=== PATIENT | male | born 1995 | race Caucasian/White ===

== ENCOUNTER 2018-05-25 02:06 | Emergency (ER) | payer BC ==
[2018-05-25] MEDS ORDERED: NS 1,000 ML IV ONE (02:16)
--- NOTE | 2018-05-25 02:43 | EDPHY ---
H & P Stated Complaint: alcohol intoxication, chin laceration Source: EMS Exam Limitations: Intoxication - Personal History Tetanus Vaccine Date: 1015 - Medical/Surgical History Hx Asthma: No Hx Chronic Respiratory Disease: No Hx Diabetes: No Hx Cardiac Disease: No Hx Renal Disease: No Hx Cirrhosis: No Hx Alcoholism: No Hx HIV/AIDS: No Hx Splenectomy or Spleen Trauma: No Other PMH: denies - Social History Smoking Status: Never smoked Time Seen by Provider: 05/25/18 02:14 HPI/ROS: 2:40 a.m.- I received report from the paramedics upon the patient's arrival. He has a 22- year-old male who admits to alcohol use tonight and has a chin laceration. His girlfriend called 911 and stated that he was unresponsive and she was very worried about him. However, when paramedics arrived he was alert and oriented. I was informed by the nurse at the patient bolted out of the emergency department running out through the ambulance [facility]. We called security, however they were all her unable to find him. We have called the police. At approximately 3:00 a.m., the patient was brought back to the emergency department with the police after being found close to the hospital. HPI The patient presents with chin laceration, altered mental status. Originally, the patient's girlfriend called 911 because he had seemed to stop breathing. When the paramedics arrived, he was awake and alert. He did admit to drinking several alcoholic drinks during the course of the day and there was some cocaine found near him. His girlfriend says that he cut his chin while walking into the house, however she is not sure on what. The patient does not have a headache, vomiting, changes to his vision. He says that he wanted to leave the ER earlier because he was feeling nervous and ran. He now apologizes for this and states that he is appreciative for his care. REVIEW OF SYSTEMS 10 systems were reviewed and negative with the exception of the elements mentioned in the history of present illness. PMHx: Healthy Soc Hx: College student, alcohol and cocaine use PHYSICAL General Appearance: Alert, appears intoxicated Head: There is superficial abrasions to his forehead, he has a 2 cm chin laceration to his inferior chin which is gaping Eyes: Pupils equal and round no pallor or injection ENT, Mouth: Mucous membranes moist Respiratory: There are no retractions, lungs are clear to auscultation Cardiovascular: Tachycardic rate and regular rhythm Gastrointestinal: Abdomen is soft and non-tender, no masses, bowel sounds normal Neurological: A&O, moves all extremities Skin: Warm and dry, no rashes Musculoskeletal: Neck is supple non tender Extremities: symmetrical, full range of motion Psychiatric: Patient is oriented X 3, there is no agitation (Felicity Vazquez) Constitutional: Initial Vital Signs Temperature (C) 37.0 C 05/25/18 02:11 Heart Rate 116 H 05/25/18 02:11 Respiratory Rate 20 05/25/18 02:11 Blood Pressure 148/80 H 05/25/18 02:11 O2 Sat (%) 98 05/25/18 02:11 O2 Delivery Mode Room Air Allergies/Adverse Reactions: No Known Allergies Allergy (Unverified 05/25/18 02:11) Home Medications: Medication Instructions Recorded NK [No Known Home Meds] 05/25/18 Medical Decision Making Procedures: LACERATION REPAIR Procedure: Laceration repair. Verbal consent was obtained from the patient. The linear 2 cm laceration on the chin was anesthetized using lidocaine with epinephrine. The wound was scrubbed, draped and explored to its base with a gloved finger. There were no deep structures involved. No tendon injury was identified. The wound required extensive debridement . The wound was repaired with 3 deep dermal simple interrupted sutures of 4-0 PDS followed by a combination of horizontal mattress and simple interrupted epidermal sutures of 5-0 Prolene. The wound repair was complex. The procedure was performed by myself. (Felicity Vazquez) ED Course/Re-evaluation: Patient's care was signed out to me at 7:00 a.m.. I saw the patient at 7:30 a.m.. He is awake and conversational. He tells me no headache. He tells me no neck pain. No dental pain or trauma. Laceration that has been sutured inspected by me and looks fine. 8:30 a.m. patient is ambulatory in the emergency department. He is alert conversational. Again no headache. No evidence of concussion or closed head injury He will be transported to the [facility] [address] by [employer] (Gabino Salcedo) Differential Diagnosis: 22-year-old male college student with no significant past medical history presents with altered mental status in the setting of alcohol intoxication and likely cocaine use, found by his girlfriend to not be breathing she reports. When paramedics arrived, patient was breathing normally with normal vital signs though did seem heavily intoxicated with a laceration to his chin. He was in the ER for or less than an hour when he bolted out to the ambulance [facility]. Police were called to retrieve him. Here, he has a normal neurologic exam, however seems intoxicated and has a laceration to his chin. He had a blood alcohol level in the 300s with urine toxicology positive for marijuana. I repaired his chin laceration. I plan to observe him for several hours until he is sober. I do not think he needs CT scan of his head at this time the will monitor him closely. (Felicity Vazquez) - Data Points Laboratory Results: 05/25/18 05/25/18 02:20 02:20 Urine Opiates Screen NEGATIVE (NEGATIVE) Urine Barbiturates NEGATIVE (NEGATIVE) Ur Phencyclidine Scrn NEGATIVE (NEGATIVE) Ur Amphetamine Screen NEGATIVE (NEGATIVE) U Benzodiazepines Scrn NEGATIVE (NEGATIVE) Urine Cocaine Screen NEGATIVE (NEGATIVE) U Marijuana (THC) Screen NON-NEGATIVE H (NEGATIVE) Ethyl Alcohol 316 mg/dL H mg/dL (0-10) Medications Given: Discontinued Medications Sodium Chloride (Ns) 1,000 mls @ 0 mls/hr IV EDNOW ONE; Wide Open PRN Reason: Protocol Stop: 05/25/18 02:17 Last Admin: 05/25/18 02:25 Dose: 1,000 mls Departure - Departure Disposition: Home, Routine, Self-Care Clinical Impression: Alcoholic intoxication Qualifiers: Complication of substance-induced condition: with delirium Qualified Code(s): F10.921 - Alcohol use, unspecified with intoxication delirium Laceration of chin Qualifiers: Encounter type: initial encounter Qualified Code(s): S01.81XA - Laceration without foreign body of other part of head, initial encounter Condition: Good Instructions: Care For Your Stitches (ED), Laceration (ED) Additional Instructions: The stitches then you chin should be removed in 5 days on May 30. You can return to the emergency department for this. You should use antibiotic ointment and a Band-Aid on your wound at all times. Please return to the emergency department if your worse in any way. Referrals: [facility] [Clinic] - As per Instructions
[2018-05-25 08:29] VITALS: BP 116/63
== END 2018-05-25 08:44 | disposition home or self-care (01) ==
PROC: 0HQ1XZZ Repair Face Skin, External Approach (ICD-10-PCS; principal; 2018-05-25)
DX: S01.81XA Laceration without foreign body of other part of head, initial encounter (principal); F10.921 Alcohol use, unspecified with intoxication delirium; E86.9 Volume depletion, unspecified; W26.9XXA Contact with unspecified sharp object(s), initial encounter; Y92.009 Unspecified place in unspecified non-institutional (private) residence as the place of occurrence of the external cause; Y93.K1 Activity, walking an animal; Y99.9 Unspecified external cause status
CPT/HCPCS: 80305; G0480